=== PATIENT | male | born 1995 | race Caucasian/White ===

== ENCOUNTER 2021-01-22 12:37 | Inpatient (IN) | payer MEDICAID, OTHER ==
[~2021-01-22] VITALS: Ht 165.1 cm; Wt 51.7 kg
[2021-01-22] MEDS ORDERED: METHYLPREDNISOLONE SOD SUCC 125 MG/2 ML VIAL IV ONE (13:30)
[2021-01-22] MEDS ORDERED: CLINDAMYCIN 600 MG in DEXTROSE 5% WATER 50 ML IV ONE (13:30)
[2021-01-22] MEDS ORDERED: DIPHENHYDRAMINE 50MG/ML VIAL IV ONE (13:30)
[2021-01-22] MEDS ORDERED: FAMOTIDINE 20MG/2ML VIAL IV ONE (13:30)
[2021-01-22 14:37] LABS: BASOPHILS % 0.1 % (0.0-2.0); EOSINOPHILS % 6.4 % (0.0-5.0); HEMATOCRIT. 44.6 % (42.0-52.0); LYMPHOCYTES % 16.2 % (20.0-50.0); MEAN CORPUSCULAR VOLUME 86.2 fL (80.0-94.0); MEAN PLATELET VOLUME 8.5 fl (7.4-10.4); MONOCYTES % 6.9 % (2.0-8.0); NEUTROPHILS % 70.4 % (40.0-76.0); PLATELET 231 x1000/uL (130-400); RED BLOOD CELL COUNT 5.17 mill/uL (4.7-6.1); RED CELL DISTRIBUTION WIDTH 13.5 % (11.6-14.6)
[2021-01-22] MEDS: CLINDAMYCIN 600MG PREMIX 50 ML IV SCH ×5 (14:38→21:10)
[2021-01-22 14:39] LABS: CHLORIDE 105 mEq/L (98-107)
[2021-01-22 14:41] LABS: PROTHROMBIN TIME 11.2 sec (9.6-11.0)
[2021-01-22] MEDS ORDERED: ONDANSETRON HCL 4MG/2ML INJ IV PRN (15:15)
[2021-01-22] MEDS ORDERED: IPRATROPIUM/ALBUTEROL 0.5-3(2.5)MG/3ML NEB HHN PRN (15:15)
[2021-01-22] MEDS ORDERED: HYDRALAZINE 20MG/ML VIAL IV PRN (15:15)
[2021-01-22] MEDS ORDERED: MAGNESIUM/ALUMINUM HYDROXIDE/SIMETHICONE 30ML UDC PO PRN (15:15)
[2021-01-22] MEDS ORDERED: HYDROCODONE/ACETAMINOPHEN 5/325MG TABLET PO PRN (15:15)
[2021-01-22] MEDS ORDERED: ACETAMINOPHEN 325MG TABLET PO PRN (15:15)
[2021-01-22] MEDS ORDERED: DOCUSATE SODIUM 100MG CAPSULE PO PRN (15:15)
[2021-01-22] MEDS ORDERED: LORAZEPAM 2MG/ML CPJ IV PRN (15:15)
[2021-01-22] MEDS ORDERED: GUAIFENESIN 200MG/10ML SUGAR FREE UDC PO PRN (15:15)
[2021-01-22] MEDS ORDERED: CLONIDINE 0.1MG TABLET PO PRN (15:15)
[2021-01-22] MEDS: ENOXAPARIN 30MG/0.3ML SYR SUBCUT SCH (21:09)
[2021-01-22 22:00] VITALS: BP 116/72
[2021-01-22] MEDS: SODIUM CHLORIDE 0.9% INJ 3ML FLUSH IVF SCH (23:01)
[2021-01-23] VITALS: BP 93/36
[2021-01-23 04:00] VITALS: BP 97/66
[2021-01-23] MEDS: DIPHENHYDRAMINE 50MG/ML VIAL IV PRN ×4 (04:19→21:08)
[2021-01-23] MEDS: SODIUM CHLORIDE 0.9% INJ 3ML FLUSH IVF SCH ×3 (05:00→21:02)
[2021-01-23 07:29] LABS: BASOPHILS % 0.1 % (0.0-2.0); EOSINOPHILS % 0.4 % (0.0-5.0); HEMOGLOBIN. 15.1 g/dL (14.0-18.0); LYMPHOCYTES % 8.3 % (20.0-50.0); MEAN CORPUSCULAR HEMOGLOBIN 28.6 pg (28.0-32.0); MEAN CORPUSCULAR VOLUME 86.9 fL (80.0-94.0); MEAN PLATELET VOLUME 9.1 fl (7.4-10.4); MONOCYTES % 6.4 % (2.0-8.0); NEUTROPHILS % 84.8 % (40.0-76.0); PLATELET 233 x1000/uL (130-400); RED BLOOD CELL COUNT 5.29 mill/uL (4.7-6.1); RED CELL DISTRIBUTION WIDTH 13.6 % (11.6-14.6)
[2021-01-23 08:00] VITALS: BP 104/60
[2021-01-23 08:19] LABS: CHLORIDE 109 mEq/L (98-107)
[2021-01-23] MEDS: ENOXAPARIN 30MG/0.3ML SYR SUBCUT SCH (08:49)
[2021-01-23] MEDS: CLINDAMYCIN 600MG PREMIX 50 ML IV SCH ×3 (10:59→21:01)
[2021-01-23 12:00] VITALS: BP 105/63
[2021-01-23 16:00] VITALS: BP 107/60
[2021-01-23] MEDS: DIPHENHYDRAMINE 50MG CAPSULE PO SCH (16:00)
[2021-01-23 20:00] VITALS: BP 110/63
[2021-01-24] VITALS: BP 110/57
[2021-01-24] MEDS: DIPHENHYDRAMINE 50MG CAPSULE PO SCH ×3 (00:22→13:23)
[2021-01-24 04:00] VITALS: BP 105/61
[2021-01-24] MEDS: SODIUM CHLORIDE 0.9% INJ 3ML FLUSH IVF SCH ×2 (05:03→13:23)
[2021-01-24] MEDS: CLINDAMYCIN 600MG PREMIX 50 ML IV SCH ×2 (05:03→11:02)
[2021-01-24 08:00] VITALS: BP 118/76
[2021-01-24] MEDS: DIPHENHYDRAMINE 50MG/ML VIAL IV PRN (08:19)
[2021-01-24] MEDS ORDERED: ENOXAPARIN 40MG/0.4ML SYR SUBCUT SCH (09:00)
[2021-01-24 12:00] VITALS: BP 115/70
[2021-01-24 13:13] VITALS: BP 115/70
== END 2021-01-24 15:53 | disposition home or self-care (01) | DRG 383 ==
LOC: ER 12:37 → EDBD 12:37 → 5WST 15:10 → EDBEDREQSVC 15:15 → EDBEDREQ 15:15 → EDBEDREQTM 15:15 → ENRESERV 21:16
PROVIDERS: ADMIT Internal Medicine; ATTEND Internal Medicine
DX: L03.90 Cellulitis, unspecified (principal); L50.9 Urticaria, unspecified; T78.40XA Allergy, unspecified, initial encounter; Y92.89 Other specified places as the place of occurrence of the external cause; Z79.899 Other long term (current) drug therapy
CPT/HCPCS: 36415; 71045; 80053; 83605; 84145; 85025; 93005; 99285; J1200; J1650; J2930; J3490; J7040; J7060; Q0163